=== PATIENT | female | born 1990 | race Caucasian/White ===

== ENCOUNTER 2016-08-31 11:00 | Inpatient (IN) | payer OTHER ==
--- NOTE | ~2016-08-31 | HP ---
Unit #: [id number] #: [id number] Patient: MARILEE BRAVO [id number] [place] [address] [id number] MR#: [id number] NAME: MARILEE BRAVO ROOM: 85 Age: 26 Sex: F Admission Date: 08/31/2016 : 1990 Attending Physician: Tariq Hook M.D. Admitting Physician: Tariq Hook M.D. Primary Care Physician: Generic Doctor Not In System HISTORY AND PHYSICAL HISTORY OF PRESENT ILLNESS Marilee is a 26-year-old admitted to [facility] with depression and verbalizing wanting to hurt herself. PAST MEDICAL HISTORY 1. High blood pressure. 2. Graves disease. 3. Hepatitis C. PAST SURGICAL HISTORY Nothing reported. ALLERGIES No known drug allergies. SOCIAL HISTORY Smokes one pack per day. Denies alcohol. Admits to using marijuana on occasion and has a history of other illicit substance abuse to include IV meth and heroin. FAMILY HISTORY Medically noncontributory. REVIEW OF SYSTEMS CONSTITUTIONAL: No fever or chills. HEENT: Denies any sore throat, ear pain or runny nose. CARDIOVASCULAR: Denies chest pain, irregular heart rhythm or palpitations. CHEST: Denies shortness of breath or cough. No hemoptysis. GASTROINTESTINAL: Denies nausea, vomiting, diarrhea or chronic constipation. ENDOCRINE: Denies history of increased thirst or urination. No recent significant weight loss or gain. GENITOURINARY: Denies dysuria, frequency, or hematuria. SKIN: Denies any rashes. HEMATOLOGIC: Denies history of increased bleeding or bruising. MUSCULOSKELETAL: Denies any hot, swollen joints. No generalized muscle pain. NEUROLOGIC: Denies problems with vision or speech. No frequent, severe headaches. No numbness, tingling or weakness in any extremities. Denies loss of bladder or bowel control. CURRENT MEDICATIONS 1. Zoloft 50 mg q.a.m. Unit #: [id number] #: [id number] Patient: MARILEE BRAVO 2. Nicorette gum p.r.n. 3. Desyrel 50 mg q.h.s. p.r.n. 4. Milk of magnesia p.r.n. 5. Maalox p.r.n. 6. Tylenol p.r.n. 7. SEROquel 100 mg q.h.s. 8. Tenormin 25 mg every day. PHYSICAL EXAMINATION GENERAL: Alert, well nourished, and in no apparent distress. VITAL SIGNS: Blood pressure 113/72, heart rate 56, respirations 16, temperature 98.6, weight 128 pounds, and height 4 feet, 11 inches. SKIN: Warm and dry without rash. She has an abrasion along her right wren. The area is partially scabbed over. There is no increased redness, swelling, heat or pus noted. HEENT: Normocephalic. TMs not viewed. Oral and nasal passages clear. Conjunctivae clear. PERRLA. EOMs intact. NECK: Supple without lymphadenopathy or thyromegaly. HEART: Regular rate and rhythm without murmur. LUNGS: Clear. ABDOMEN: Soft, nontender. : Not done. EXTREMITIES: No evidence of cyanosis, clubbing or edema. Moves all without focal deficit. NEUROLOGICAL: Grossly within normal limits. Cranial Nerves: II: Visual patel are intact. III, IV AND : Extraocular movements are intact. Pupils are equal, round and reactive to light. V: Facial sensation is grossly normal. VII: Facial movements and expression are normal. VIII: Auditory acuity grossly intact. IX, X: Uvula is midline. Phonation is normal. XI: Patient shrugs shoulders and turns head normally. XII: Tongue protrudes in the midline. Sensory and Motor Function: Sensory and motor sensation is grossly normal. Motor: moves all extremities well. Coordination: Gait is normal. Deep Tendon Reflexes: Intact. IMPRESSION 1. Psychiatric admission. 2. Well healing abrasion along her right wren. RECOMMENDATIONS PSYCHIATRIC: Per psychiatrist. MEDICAL 1. I see no contraindication to participating in facility's activities. 2. Keep the abrasion clean with soap and water. No further Rx. MEDICAL PROGNOSIS Good. MEDICAL CONDITION Stable. Dictated by... Catie Kunz P.A.-C. for Tony Dowell M.D. Unit #: [id number] #: [id number] Patient: MARILEE BRAVO GIBRAN/mack TD: 09/02/2016 08:24 JOB #: [id number] HISTORY AND PHYSICAL Page 1 of 1 X Catie Kunz HISTORY AND PHYSICAL
--- NOTE | ~2016-08-31 | DS ---
Unit #: [id number] #: [id number] Patient: RAFAT BRAVO [id number] [facility] [address] [place] [address] [id number] I MR#: [id number] NAME: RAFAT BRAVO ROOM: [facility] Age: 26 Sex: F Admission Date: 08/31/2016 : 1990 Discharge Date: 09/04/2016 Attending Physician: Tariq Hook M.D. DISCHARGE SUMMARY REASON FOR ADMISSION Rafat is a 26-year-old woman, who reports increasing hopelessness, helplessness, worthless feelings, and suicidal ideation with a plan to overdose. She was admitted for re-initiation of treatment. LABORATORY DATABASE ECG was negative. Other laboratory studies were within normal limits. HOSPITAL COURSE The patient was admitted and placed on suicide precautions. Zoloft 50 mg daily for depression and Seroquel 100 mg at bedtime for mood stability was initiated. The patient was generally quite and cooperative throughout the hospitalization and showed absolutely no signs of detox. On the date of discharge, she had good mood, bright affect, and was able to contract for safety with no further suicidal ideation, intent, or plan. DISCHARGE DIAGNOSES AXIS I: Major depression, history of opioid dependence, and history of amphetamine dependence. AXIS II: No diagnosis. AXIS III: Hypertension, Graves disease, and hepatitis C. AXIS IV: AXIS V: DISCHARGE INSTRUCTIONS Follow up with [facility]. DISCHARGE MEDICATIONS 1. Zoloft 50 mg daily for depression. 2. Seroquel 100 mg at bedtime for mood stability. CONDITION AT DISCHARGE Improved. PROGNOSIS Good. DIET Per primary care doctor. ACTIVITY Per primary care doctor. Unit #: [id number] #: [id number] Patient: RAFAT BRAVO Dictated by... Tariq Hook M.D. [facility]/modl TD: 09/04/2016 17:55 JOB #: [id number] DISCHARGE SUMMARY Page 1 of 1 X Tariq Hook MD DISCHARGE SUMMARY
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
[2016-09-01 12:28] LABS: BASOPHIL% 0.2 % (0-2.5); EOSINOPHIL# 0.3 X10e3 (0-0.7); EOSINOPHIL% 3.6 % (0.0-7.0); HEMATOCRIT 39.9 % (35.0-45.0); HEMOGLOBIN 12.8 gm/dL (12.0-16.0); LYMPHOCYTE# 1.4 X10e3 (1.0-3.5); MEAN CELL VOLUME 82.8 FL (83-96); MEAN CORPUSCULAR HEMOGLOBIN 26.5 PG (28-34); MONOCYTE# 0.6 X10e3 (0-1.0); MONOCYTE% 7.7 % (3.0-12.0); NEUTROPHIL# 5.1 X10e3 (1.5-7.1); NEUTROPHIL% 69.5 % (40-75); PLATELET COUNT 261 X10e3 (140-420); RED BLOOD COUNT 4.82 X10e (3.90-5.30); RED CELL DISTRIBUTION WIDTH 16.2 % (11.0-15.5); WHITE BLOOD COUNT 7.4 X10e3 (4.0-10.5)
[2016-09-01 12:40] LABS: DIFF IND NO
[2016-09-01 12:48] LABS: ALBUMIN SERUM 3.9 g/dL (3.5-5.0); BILIRUBIN,TOTAL 0.8 mg/dL (0.2-2.0); BUN/CREATININE RATIO 22.5; CALCIUM SERUM 9.4 mg/dL (8.4-10.2); CREATININE SERUM 0.8 mg/dL (0.6-1.4); GLOM FILT RATE Estimated 101.1 mL/min (>60); POTASSIUM 4.6 mmol/L (3.5-5.1); PROTEIN TOTAL SERUM 6.6 g/dL (6.0-8.3)
== END 2016-09-04 11:10 | disposition home or self-care (01) | DRG 885 ==
LOC: P1E 17:34
PROVIDERS: Psychiatry & Neurology Psychiatry
DX: F33.9 Major depressive disorder, recurrent, unspecified (principal); R45.851 Suicidal ideations; I10 Essential (primary) hypertension; Z81.1 Family history of alcohol abuse and dependence; Z81.8 Family history of other mental and behavioral disorders; F17.210 Nicotine dependence, cigarettes, uncomplicated
CPT/HCPCS: 80053; 84703; 85025